=== PATIENT | female | born 1990 | race Caucasian/White ===

== ENCOUNTER → 2018-11-08 17:12 | Outpatient (CLI) | payer OTHER, SELFPAY ==
[2018-11-08 16:58] VITALS: BMI 35.2
[2018-11-08 17:38] LABS: Basophil# 0.02 X10^3/uL; Basophil% 0.2 % (0-1); Eosinophil# 0.25 X10^3/uL; Eosinophils% 2.2 % (0-5); Hematocrit 36.5 % (37-47); Hemoglobin 12.4 g/dL (12.0-15.0); Lymphocyte % 16.1 % (19-41); Mean Corpuscular Hgb 31.4 pg (27.0-32.0); Mean Corpuscular Volume 92.4 fL (81-99); Mean Platelet Vol. 10.4 fl (6.2-12.0); Monocyte# 1.09 X10^3/uL; Monocyte% 9.7 % (0-10); NRBC Flagged by Analyzer 0 % (0-5); Neutrophil # 7.99 X10^3/uL (2.7-7.7); Neutrophil % 71.4 % (47-70); Platelet Count 222 K/mm3 (150-450); RBC Distribution Width CV 13.7 % (11.6-14.6); RBC Distribution Width SD 46.2 fl (35.1-43.9); Red Blood Count 3.95 M/mm3 (4.2-5.4); White Blood Count 11.2 K/mm3 (4.4-11.0)
[2018-11-08 18:11] LABS: ALB/GLOB Ratio 0.8 RATIO (0.9-2.4); AST(SGOT) 16 U/L (15-37); Alanine Aminotransfer ALT/SGPT 19 U/L (13-56); Albumin, Serum 2.8 g/dL (3.2-5.0); Alkaline Phosphatase 158 U/L (45-117); Anion Gap 10 (5-15); BUN 7 mg/dL (7-18); BUN/Creat Ratio 11.1 RATIO (10-20); Calcium,Total 8.2 mg/dL (8.5-10.1); Chloride 108 mmol/L (98-107); Creatinine, Serum 0.63 mg/dL (0.55-1.02); EST Glomerular Filtration Rate 118 mL/min (>60); Est Glom Filt Rate - Afr Amer 142 mL/min (>60); Globulin 3.6 g/dL (2.2-4.2); Glucose 77 mg/dL (74-106); Potassium 3.8 mmol/L (3.5-5.1); Protein, Total 6.4 g/dL (6.4-8.2); Sodium Level 140 mmol/L (136-145)
[2018-11-08 18:22] LABS: Protein, Urine (Random) 7.8 mg/dL (<11.9); Protein:Creat Ratio 341 mg/g CRE (0-200)
== END ==
PROVIDERS: Family Provider Family Medicine; PCP Family Medicine; Referring Provider Obstetrics & Gynecology; Visit Provider Obstetrics & Gynecology
DX: O16.3 Unspecified maternal hypertension, third trimester (principal); Z3A.36 36 weeks gestation of pregnancy
CPT/HCPCS: 36415; 80053; 82570; 84156; 85025; 87081

== ENCOUNTER 2018-11-09 14:53 | Inpatient (IN) | payer OTHER, SELFPAY ==
[2014-12-27 05:38] VITALS: BMI 35.2
[2018-11-08 16:58] VITALS: BMI 35.2
[2018-11-09 15:35] VITALS: BMI 33.0
[2018-11-09] MEDS: Lactated Ringers 1,000 ML 50 ML IV ×2 (15:35→17:30)
[2018-11-09 15:52] LABS: Absolute Lymphocyte Count 1.26 X10^3/uL (0.83-4.51); Absolute Neutrophil Count 8.8 X10^3/uL (2.0-7.7); Basophil# 0.01 X10^3/uL; Basophil% 0.1 % (0-1); Eosinophil# 0.13 X10^3/uL; Eosinophils% 1.2 % (0-5); Hematocrit 37.2 % (37-47); Hemoglobin 12.7 g/dL (12.0-15.0); Lymphocyte # 1.26 X10^3/ul (4.0); Lymphocyte % 11.2 % (19-41); Mean Corp Hgb Conc 34.1 g/dL (32-36); Mean Corpuscular Hgb 30.9 pg (27.0-32.0); Mean Corpuscular Volume 90.5 fL (81-99); Mean Platelet Vol. 10.2 fl (6.2-12.0); Monocyte# 0.97 X10^3/uL; Monocyte% 8.6 % (0-10); NRBC Flagged by Analyzer 0 % (0-5); Neutrophil # 8.82 X10^3/uL (2.7-7.7); Neutrophil % 78.3 % (47-70); Platelet Count 224 K/mm3 (150-450); RBC Distribution Width CV 13.6 % (11.6-14.6); Red Blood Count 4.11 M/mm3 (4.2-5.4); White Blood Count 11.3 K/mm3 (4.4-11.0)
[2018-11-09] MEDS: fentaNYL-bupivacaine (epidural) 100 ML BAG EPIDURAL (16:15)
[2018-11-09] MEDS: Betamethasone/Betamethasone 30 MG/5 ML Vial 12 MG IM (16:32)
[2018-11-09] MEDS: Oxytocin 30 units/NS 500 ml 30 UNITS/500 ML IV.SOLN 334 UNITS IV (18:07)
[2018-11-09] MEDS: Oxytocin 30 units/NS 500 ml 30 UNITS/500 ML IV.SOLN 167 UNITS IV (18:38)
--- NOTE | 2018-11-09 19:19 | HP.PCM_ITS ---
- Problem List (1) labor Status: Acute (2) (vaginal after ) Status: Acute (3) Status: Acute Qualifiers: Comment: 1 hr glucose normal (4) Rh negative status during Status: Acute Qualifiers: Comment: Gave rhogam 09/12/18 (5) History of Status: Acute Comment: Breech presentation (6) Breech presentation Status: Acute History Date of Admission: 01/03/15 Final MOMO: 12/04/18 Final MOMO Source: LMP Gestational age: 36 Weeks and 3 Days History of this : This is a 28 year-old, at 36 weeks gestational age presents in active labor 6 cm dilated. She denies any vaginal bleeding or loss of fluid admits good movement. She is had regular contractions for the last couple of hours increasing in intensity. She had elevated protein in her urine yesterday and initially high pressure but all blood pressures have been within normal limits since. Medical History: Medical History (Last Reviewed 11/08/18 @ 16:22 by Cara Mcneill) Rh negative status during (Acute) O26.899, Z67.91 Gave rhogam 09/12/18 Surgical History: Surgical History (Last Reviewed 11/08/18 @ 16:22 by Cara Mcneill) History of (Acute) Z98.891 Breech presentation Allergies No Known Allergies Allergy (Verified 11/09/18 15:34) Home Medications: Home Medications Vits [Prenatabs FA ] 1 tab PO DAILY 10/30/14 blood pressure monitor kit See Rx Instructions .ROUTE .MEDSUPPLY #1 ea 11/08/18 Smoking Status: Never smoker Alcohol: None Number of Fetus(es): 1 Heart Tracin moderate variability reactive no decelerations category I tracing [place]: regular History Past Pregnancies: Past Pregnancies Term vaginal delivery uncomplicated Term at complete dilation due to breech presentation. Emergency explo ratory laparotomy afterwards for retroperitoneal hematoma and RSO. ICU admission and blood product replacement Labs: Mom's Labs & Results 11/09/18 11/09/18 11/09/18 15:35 15:35 15:35 WBC 11.3 H RBC 4.11 L Hgb 12.7 Hct 37.2 MCV 90.5 MCH 30.9 MCHC 34.1 RDW Std Deviation 45.0 H RDW Coeff of Stew 13.6 Plt Count 224 MPV 10.2 Immature Gran % (Auto) 0.600 Neut % (Auto) 78.3 H Lymph % (Auto) 11.2 L [place] % (Auto) 8.6 Eos % (Auto) 1.2 Baso % (Auto) 0.1 Absolute Neuts (auto) 8.8 H Absolute Lymphs (auto) 1.26 Nucleated RBC % 0 Blood Type A NEGATIVE Antibody Screen TNP NEGATIVE Course Did the patient receive Yes care? Labs Blood Type: A RH: NEGATIVE RPR/VDRL/Syphilis Nonreactive Rubella status Immune HbSAg Negative Date Done: 05/09/18 Chlamydia Negative Gonorrhea Negative HIV/AIDS Non-Reactive Group B Strep: Collected on Admission Other Lab Procedures/Results/ GBS pending; pt to be treated with ampicillin for Comments: premat Current Obstetrical History Gestational Diabetes No Incompetent Cervix No Infertility No IUGR No Macrosomia No Hypertension/Pre-eclampsia No Placenta Previa/Abruption No PTL/PROM No Uterine anomaly No Oligohydramnios No Polyhydramnios No Multiple gestation No Past Medical History Asthma No Diabetes No Hypertension No Heart disease No Mitral valve prolapse No Neurologic/Seizure disorder/ No Migraines Kidney disease No Liver disease No Varicosities No Clotting disorders/Hx of DVT No Thyroid Dysfunction No Other medical diseases No Psychiatric disorders No Major trauma No Abnormal PAP smear No Sleep apnea No Mammogram in the last 2 years No Social History Marital Status: Alleged father Henrry Hx Smoking No Smoking Status Never smoker Expected Infant Delivery Method: Review of Systems Constitutional: Denies: Fever, Malaise Eyes: Denies: Blurred vision, Vision Change HEENT: Denies: Head Aches, Visual Changes Cardiovascular: Denies: Chest Pain, Palpitations Respiratory: Denies: Cough, Shortness of Breath, Wheezing Gastrointestinal: Denies: Abdominal Pain, Diarrhea, Nausea, Vomiting Genitourinary: Denies: Dysuria, Hematuria Musculoskeletal: Denies: Joint Pain, Muscle pain Skin: Denies: Lesions, Rash Neurological: Denies: Blurred vision, Focal weakness, Headaches Psychiatric: Denies: Anxiety, Depression Endocrine: Denies: Heat/ Cold Intolerance Hematologic/ Lymphatic: Denies: Easy Bruising, Easy Bleeding Physical Exam General: Alert, Cooperative, No apparent distress HEENT: Atraumatic, Normocephalic. Negative for: Thyromegaly, Lymphadenopathy Cardiovascular: Regular rate Lungs: Normal air movement Abdomen: Soft, Non Tender, Gravid Neurological: Deep Tendon Reflexes 2+/4 and Symmetrical, Neuro grossly intact. Negative for: Clonus ACCOUNTANT SUPERVISOR: Normal external genitalia. Negative for: Vulvar lesions Estimated gestational size: Appropriate for gestational size Presentation: Cephalic Cervix Dilation (cm): 6 Assessment/Plan All Active Problems (Last Reviewed 11/08/18 @ 16:22 by Cara Mcneill) labor (Acute) (vaginal after ) (Acute) (Acute) Rh negative status during (Acute) History of (Acute) Breech presentation (Acute) This is a 28 year-old, , at 36 weeks gestational age presents in labor 1. labor?may change from 6 to 8 cm, epidural placed and clear rupture of membranes. Ampicillin given for GBS unknown status. 2. Prematurity Celestone dose given 3. Monitor blood pressures due to proteinuria diagnosed yesterday 4. patient counseled regarding risk benefits and alternatives and patient wishes to proceed with trial of labor Multi Select Codes - Urinary/Genital Urinary/Genital CPT Codes: 87021 delivery [facility]
--- NOTE | 2018-11-09 19:22 | OP.PCM_ITS ---
Problem List (1) labor Status: Acute (2) (vaginal after ) Status: Acute (3) Status: Acute Qualifiers: Comment: 1 hr glucose normal (4) Rh negative status during Status: Acute Qualifiers: Comment: Gave rhogam 09/12/18 (5) History of Status: Acute Comment: Breech presentation (6) Breech presentation Status: Acute Vaginal Delivery Maternal Presentation: Active Labor ptl 36 weeks Amniotic Membrane Rupture Type: Artificial Amniotic Fluid Description: Clear Final MOMO: 12/04/18 Gestational age: 36 Weeks and 3 Days Date of Procedure: 11/09/18 Pre-Operative Diagnosis: ptl Post-Operative Diagnosis: same Surgery/ Procedure Performed: - - Type of Anesthesia: Epidural, Local with 1% lidocaine Description of Procedure: Patient began pushing and delivered the head in the DEANGELO presentation. The head was delivered atraumatically . The anterior and posterior shoulders delivered without complication followed by the rest of the infant and the was placed on the maternal abdomen. Delayed cord clamping was employed for approximately 60 seconds. Cord was clamped and cut and gentle traction was applied to the cord and the placenta delivered spontaneously immediately following it was noted to be intact with three-vessel cord. The perineum and vagina were inspected and noted to have a second-degree perineal laceration that was injected with 1% lidocaine due to an adequate epidural and was reapproximated with 3-0 Vicryl repeat. EBL was 200 cc. Patient and infant tolerated delivery well. Presentation: DEANGELO Placental Delivery Description: Spontaneous Placenta Disposition: [facility] Cord Vessel Description: 3 Vessels Cord Entanglement: None Estimated Blood Loss: 200 A gender: Male Episiotomy Description: None Laceration: Perineal Extension/lac, 2nd degree Medications given after delivery: IV Pitocin Complications: None Multi Select Codes - Urinary/Genital Urinary/Genital CPT Codes: 11160 delivery [facility]
[2018-11-09] MEDS: 0.9% Saline Lock 10 ML Syringe IV (19:38)
[2018-11-10 00:15] VITALS: BP 117/76; PULSE 80; RESP 18; TEMP 36.5
[2018-11-10 03:20] VITALS: BP 126/70; PULSE 75; RESP 18; TEMP 36
[2018-11-10 07:30] VITALS: BP 130/72; PULSE 82; RESP 16; TEMP 36.5; O2SAT 97
--- NOTE | 2018-11-10 08:06 | PN.OBGYN_ITS ---
Patient Problems: Active and Suspected Problems (Last Reviewed 11/08/18 @ 16:22 by Cara Mcneill) labor (Acute) (vaginal after ) (Acute) Subjective: doing well no complaints pain controlled no CP SOB N V ambulating well tolerating po lochia moderate, going well - Physical Exam General: Alert, Oriented x3 Abdomen: Soft, Non Tender, - - FF below U Vital Signs Temp Pulse Resp BP Pulse Ox 97.7 F L 82 16 130/72 H 97 11/10/18 07:30 11/10/18 07:30 11/10/18 07:30 11/10/18 07:30 11/10/18 07:30 Oxygen Delivery Method Room Air Weight: 205 lb 0.478 oz Body Mass Index (BMI) 33.0 Intake and Output for Last 24 Hours 11/08/18 11/09/18 11/10/18 23:59 23:59 23:59 Output Total 600 / 600 400 / 400 Balance -600 / -600 -400 / -400 Laboratory Tests Past 24 Hrs 11/09/18 11/09/18 11/09/18 15:35 15:35 15:35 WBC 11.3 H RBC 4.11 L Hgb 12.7 Hct 37.2 MCV 90.5 MCH 30.9 MCHC 34.1 RDW Std Deviation 45.0 H RDW Coeff of Stew 13.6 Plt Count 224 MPV 10.2 Immature Gran % (Auto) 0.600 Neut % (Auto) 78.3 H Lymph % (Auto) 11.2 L [place] % (Auto) 8.6 Eos % (Auto) 1.2 Baso % (Auto) 0.1 Absolute Neuts (auto) 8.8 H Absolute Lymphs (auto) 1.26 Nucleated RBC % 0 Blood Type A NEGATIVE Antibody Screen TNP NEGATIVE Screen Baby's Blood Type Baby's BRIAN 11/09/18 20:30 WBC RBC Hgb Hct MCV MCH MCHC RDW Std Deviation RDW Coeff of Stew Plt Count MPV Immature Gran % (Auto) Neut % (Auto) Lymph % (Auto) [place] % (Auto) Eos % (Auto) Baso % (Auto) Absolute Neuts (auto) Absolute Lymphs (auto) Nucleated RBC % Blood Type Antibody Screen Screen NEGATIVE Baby's Blood Type O POSITIVE Baby's BRIAN NEGATIVE Medical Necessity - Tobacco Use Smoking Status: Never smoker Assessment/Plan All Active Problems (Last Reviewed 11/08/18 @ 16:22 by Cara Mcneill) labor (Acute) (vaginal after ) (Acute) (Acute) Rh negative status during (Acute) History of (Acute) Breech presentation (Acute) s/p PPD # 1 1. routine post delivery care 2. breast feeding- support given 3. rh negative 4. rubella immune
--- NOTE | 2018-11-10 08:08 | DCINST_ITS ---
Additional Instructions: If you experience any of the following, contact your healthcare provider. * Bleeding that soaks a pad every hour for 2 hours * Fever 100.4 or higher * Unrelieved incision or abdominal pain * Swelling, redness, discharge or bleeding from your incision or episiotomy site * Your incision begins to separate * Problems urinating (including inability to urinate or burning while urinating). * Visual changes * Severe headache * Flu-like symptoms * Pain or redness in one of both of your breasts * Pain, warmth, tenderness or swelling in your legs, especially the calf area * Frequent nausea and vomiting * Symptoms of depression or anxiety If you experience any of the following, call 911 or go to the nearest Emergency Room. * Chest pain * Problems breathing * Seizure activity * Partial or complete paralysis of a body part, slurred speech, weakness or drooping of the face, or a sudden inability to walk or hold your balance Allergies/Adverse Reactions: Allergies No Known Allergies Allergy (Verified 11/09/18 15:34) Medications to take at Discharge Vits [Prenatabs FA ] 1 tab PO DAILY 10/30/14 blood pressure monitor kit See Rx Instructions .ROUTE .MEDSUPPLY #1 ea 11/08/18 Primary Care Physician: Mitchel Bustamante MD [Primary Care Provider] - Test Results: Test results from this visit will be discussed in further detail at your follow- up appointment, if applicable.
--- NOTE | 2018-11-10 08:08 | PCM.DCVAG ---
Additional Instructions: If you experience any of the following, contact your healthcare provider. Bleeding that soaks a pad every hour for 2 hours Fever 100.4 or higher Unrelieved incision or abdominal pain Swelling, redness, discharge or bleeding from your incision or episiotomy site Your incision begins to separate Problems urinating (including inability to urinate or burning while urinating). Visual changes Severe headache Flu-like symptoms Pain or redness in one of both of your breasts Pain, warmth, tenderness or swelling in your legs, especially the calf area Frequent nausea and vomiting Symptoms of depression or anxiety If you experience any of the following, call 911 or go to the nearest Emergency Room. Chest pain Problems breathing Seizure activity Partial or complete paralysis of a body part, slurred speech, weakness or drooping of the face, or a sudden inability to walk or hold your balance Allergies/Adverse Reactions: Allergies No Known Allergies Allergy (Verified 11/09/18 15:34) Medications to take at Discharge Vits [Prenatabs FA ] 1 tab PO DAILY 10/30/14 blood pressure monitor kit See Rx Instructions .ROUTE .MEDSUPPLY #1 ea 11/08/18 Primary Care Physician: Mitchel Bustamante MD [Primary Care Provider] - Test Results: Test results from this visit will be discussed in further detail at your follow-up appointment, if applicable.
[2018-11-10 13:00] VITALS: BP 131/83; PULSE 82; RESP 16; TEMP 36.6
[2018-11-10 17:24] VITALS: BP 121/89; PULSE 84; RESP 16; TEMP 36.2; O2SAT 97
[2018-11-10 19:31] VITALS: BP 115/63; PULSE 85; RESP 18; TEMP 36.9
[2018-11-11 02:35] VITALS: BP 107/62; PULSE 60; RESP 16; TEMP 36.8
[2018-11-11 08:00] VITALS: BP 114/72; PULSE 71; RESP 16; TEMP 36.3; O2SAT 99
--- NOTE | 2018-11-11 10:32 | NURSING ---
discharge instr reviewed with the pt for herself and for baby. pt dc to home
[2018-11-11] MEDS: Naproxen 250 MG Tablet 500 MG PO (10:33)
--- NOTE | 2018-11-11 12:53 | PCM.PN.OB ---
Patient Problems: Active and Suspected Problems (Last Reviewed 11/08/18 @ 16:22 by Cara Mcneill) labor (Acute) (vaginal after ) (Acute) Subjective: doing well no complaints pain controlled no CP SOB N V ambulating well tolerating po lochia moderate, going well - Physical Exam General: Alert, Oriented x3 Vital Signs Temp Pulse Resp BP Pulse Ox 97.3 F L 71 16 114/72 99 11/11/18 08:00 11/11/18 08:00 11/11/18 08:00 11/11/18 08:00 11/11/18 08:00 Oxygen Delivery Method Room Air Weight: 205 lb 0.478 oz Body Mass Index (BMI) 33.0 Intake and Output for Last 24 Hours 11/09/18 11/10/18 11/11/18 23:59 23:59 23:59 Output Total 600 / 600 400 / 400 Balance -600 / -600 -400 / -400 Medical Necessity - Tobacco Use Smoking Status: Never smoker Assessment/Plan All Active Problems (Last Reviewed 11/08/18 @ 16:22 by Cara Mcneill) labor (Acute) (vaginal after ) (Acute) (Acute) Rh negative status during (Acute) History of (Acute) Breech presentation (Acute) s/p PPD # 2 1. routine post delivery care 2. breast feeding- support given 3. rh negative 4. rubella immune
== END 2018-11-11 12:00 | disposition home or self-care (01) | DRG 807 ==
PROVIDERS: Admitting Provider Obstetrics & Gynecology; Family Provider Family Medicine; PCP Family Medicine; Referring Provider Obstetrics & Gynecology; Visit Provider Obstetrics & Gynecology
DX: O60.14X0 Preterm labor third trimester with preterm delivery third trimester, not applicable or unspecified (principal); Z37.0 Single live birth; O34.219 Maternal care for unspecified type scar from previous cesarean delivery; O32.1XX0 Maternal care for breech presentation, not applicable or unspecified; O12.14 Gestational proteinuria, complicating childbirth; O70.1 Second degree perineal laceration during delivery; Z3A.36 36 weeks gestation of pregnancy
CPT/HCPCS: 59050; 85025; 85461; 86850; 86900; 90384; 99218; J7120; A4216; G0378; J0702; J2790

== ENCOUNTER 2018-11-23 13:10 | Outpatient (CLI) | payer OTHER, SELFPAY | END 2018-11-23 14:10 | disposition home or self-care (01) | LOC: WPOUT 13:11 → WP 13:11 | PROVIDERS: Family Provider Family Medicine; PCP Family Medicine; Referring Provider Obstetrics & Gynecology; Visit Provider Obstetrics & Gynecology | DX: Z39.1 Encounter for care and examination of lactating mother (principal) | CPT/HCPCS: 96152 ==

== ENCOUNTER → 2020-04-01 11:50 | Outpatient (CLI) | payer SELFPAY ==
[2020-04-01 11:32] VITALS: BMI 26.2
== END ==
PROVIDERS: PCP Family Medicine; Visit Provider Obstetrics & Gynecology
DX: O02.1 Missed abortion (principal)
CPT/HCPCS: 36415; 84702; 86850; 86900; 86901

== ENCOUNTER → 2020-04-03 13:25 | Outpatient (CLI) | payer SELFPAY ==
[2020-04-01 11:32] VITALS: BMI 26.2
== END ==
PROVIDERS: PCP Family Medicine; Referring Provider Obstetrics & Gynecology; Visit Provider Obstetrics & Gynecology
DX: O02.1 Missed abortion (principal)
CPT/HCPCS: 36415; 84702

== ENCOUNTER → 2020-04-16 09:31 | Outpatient (CLI) | payer SELFPAY ==
[2020-04-01 11:32] VITALS: BMI 26.2
--- NOTE | 2020-04-16 09:32 | US_ITS ---
STUDY: FIRST TRIMESTER OBSTETRICAL ULTRASOUND REASON FOR EXAM: Female, 30 years old dating, viability LMP: 03/04/2020. TECHNIQUE: Transvaginal TECHNICAL QUALITY: Adequate. PRIOR ULTRASOUND: None. FINDINGS: There is visualization of a single gestational sac in a normal intrauterine position. The mean sac diameter (MSD) measures 4.1 cm, indicating an estimated gestational age (EGA) of 9 weeks, 4 days. The gestational sac shape is within normal limits. There is a visualized yolk sac. The yolk sac measures 5 mm. The placenta is non-visualized. There is visualization of a live embryo. The crown-rump length (CRL) measures 2.8 cm, indicating an estimated gestational age (EGA) of 9 weeks, 2 days. There is demonstrated cardiac activity with a heart rate of 176 bpm. The estimated gestation age (EGA) by LMP is 8 weeks, 1 days. The estimated date of delivery (MOMO) by LMP is 11/25/2020. The estimated gestation age (EGA) by US is 9 weeks, 3 days. The estimated date of delivery (MOMO) by US is 11/16/2020. The uterus measures 12.2 cm x 6.1 cm x 8 cm. There is no demonstrated uterine fibroid. The cervix is closed. The patient is status post right nephrectomy. The left ovary measures 4.6 cm x 3.7 cm x 3.3 cm. There is a 3.2 cm x 3.1 cm x 3 cm cyst in the left ovary. There is no visualized left adnexal mass or complex lesion. There is no fluid in the cul de sac. US/Init OB < 14Wks US IMPRESSION: Single live intrauterine gestation with a mean gestational age of 9 weeks and 3 days. 3.2 cm x 3.1 cm x 3 cm cyst in the left ovary. Electronically Signed: Panfilo Ruvalcaba, at 11:25 EST , Service support ,
== END ==
PROVIDERS: PCP Family Medicine; Referring Provider Obstetrics & Gynecology; Visit Provider Obstetrics & Gynecology
DX: O20.0 Threatened abortion (principal); Z3A.09 9 weeks gestation of pregnancy
CPT/HCPCS: 76801

== ENCOUNTER → 2020-05-13 10:21 | Outpatient (CLI) | payer SELFPAY ==
[2020-05-13 09:42] VITALS: BMI 27.2
[2020-05-13 10:38] LABS: Absolute Lymphocyte Count 1.59 X10^3/uL (0.83-4.51); Absolute Neutrophil Count 5.5 X10^3/uL (2.0-7.7); Basophil# 0.04 X10^3/uL; Basophil% 0.5 % (0-1); Eosinophil# 0.16 X10^3/uL; Lymphocyte # 1.59 X10^3/ul (4.0); Lymphocyte % 20.3 % (19-41); Mean Corp Hgb Conc 34.2 g/dL (32-36); Mean Corpuscular Hgb 31.2 pg (27.0-32.0); Mean Corpuscular Volume 91.1 fL (81-99); Mean Platelet Vol. 9.5 fl (6.2-12.0); Monocyte# 0.51 X10^3/uL; Monocyte% 6.5 % (0-10); NRBC Flagged by Analyzer 0 % (0-5); Neutrophil # 5.53 X10^3/uL (2.7-7.7); Neutrophil % 70.4 % (47-70); Platelet Count 247 K/mm3 (150-450); RBC Distribution Width CV 13.3 % (11.6-14.6); RBC Distribution Width SD 44.3 fl (35.1-43.9); Red Blood Count 4.17 M/mm3 (4.2-5.4); White Blood Count 7.9 K/mm3 (4.4-11.0)
[2020-05-13 11:14] LABS: ALB/GLOB Ratio 1.1 RATIO (0.9-2.4); AST(SGOT) 14 U/L (15-37); Alanine Aminotransfer ALT/SGPT 20 U/L (13-56); Albumin, Serum 3.7 g/dL (3.2-5.0); Alkaline Phosphatase 54 U/L (45-117); Anion Gap 7 (5-15); BUN 9 mg/dL (7-18); BUN/Creat Ratio 13.7 RATIO (10-20); Calcium,Total 9.4 mg/dL (8.5-10.1); Chloride 104 mmol/L (98-107); Creatinine, Serum 0.66 mg/dL (0.55-1.02); EST Glomerular Filtration Rate 112 mL/min (>60); Est Glom Filt Rate - Afr Amer 135 mL/min (>60); Globulin 3.5 g/dL (2.2-4.2); Glucose 79 mg/dL (74-106); Protein, Total 7.2 g/dL (6.4-8.2); Sodium Level 137 mmol/L (136-145)
[2020-05-13 14:04] LABS: Amphetamine Urine VISTA NEGATIVE (<1000 ng/mL); Barbiturate Urine VISTA NEGATIVE (< 200 ng/mL); Benzodiazepine Urine VISTA NEGATIVE (< 200 ng/mL); Cocaine Urine VISTA NEGATIVE (< 300 ng/mL); Ecstacy Urine VISTA NEGATIVE (< 500 ng/mL); Methadone Urine VISTA NEGATIVE (< 300 ng/mL); PCP Urine VISTA NEGATIVE (< 25 ng/mL); THC Urine VISTA NEGATIVE (< 50 ng/mL); Vista UDS pH Range 6
[2020-05-15 15:01] LABS: HIV - WCH Non-Reactive (Nonreactive); Hepatitis B Surface Antigen Non-Reactive (Nonreactive); Hepatitis C Antibody Non-Reactive (Nonreactive); Rubella IgG Reactive (Nonreactive)
[2020-05-16 03:03] LABS: Rapid Plasmin Reagin (RPR) NONREACTIVE (NONREACTIVE)
== END ==
PROVIDERS: PCP Family Medicine; Referring Provider Obstetrics & Gynecology; Visit Provider Obstetrics & Gynecology
DX: O09.90 Supervision of high risk pregnancy, unspecified, unspecified trimester (principal); O09.299 Supervision of pregnancy with other poor reproductive or obstetric history, unspecified trimester; O26.899 Other specified pregnancy related conditions, unspecified trimester; Z67.91 Unspecified blood type, Rh negative; Z3A.00 Weeks of gestation of pregnancy not specified
CPT/HCPCS: 36415; 80053; 80307; 85025; 86592; 86703; 86762; 86803; 86850; 86870; 87086; 87340

== ENCOUNTER → 2020-06-10 | Outpatient (CLI) | payer SELFPAY ==
[2020-06-10 10:42] VITALS: BMI 28.4
[2020-06-13 07:07] LABS: Chlamydia By Nucleic Acid AMP Negative (Negative)
[2020-06-13 08:28] LABS: Gonococcus By Nucleic Acid AMP Negative (Negative)
== END | disposition home or self-care (01) ==
LOC: LABSPEC 12:38
PROVIDERS: PCP Family Medicine; Referring Provider Nurse Practitioner Women's Health; Visit Provider Nurse Practitioner Women's Health
DX: O09.90 Supervision of high risk pregnancy, unspecified, unspecified trimester (principal); Z3A.00 Weeks of gestation of pregnancy not specified
CPT/HCPCS: 87491; 87591

== ENCOUNTER → 2020-07-08 07:53 | Outpatient (CLI) | payer SELFPAY ==
[2020-06-10 10:42] VITALS: BMI 28.4
--- NOTE | 2020-07-08 07:56 | US_ITS ---
STUDY: SECOND AND THIRD TRIMESTER OBSTETRICAL ULTRASOUND REASON FOR EXAM: Female, 30 years old anatomy LMP: 02/19/2020. TECHNIQUE: Transabdominal and Transvaginal TECHNICAL QUALITY: Adequate. PRIOR ULTRASOUND: Comparison is made with prior study dated 04/16/2020. FINDINGS: There is a single intrauterine fetus. The fetus is in a transverse lie with the head on the maternal right side. There is demonstrated cardiac activity with a heart rate of 144 bpm. There is a normal amniotic fluid volume. The largest amniotic fluid pocket measures 4 cm. The amniotic fluid index (TYRA) is within normal limits. The placenta is fundal in location. There are Grade 0 placental changes. The cervix measures 2.5 cm in length. The bilateral adnexal regions are normal. BIOMETRY: BPD: 4.74 cm: 20 weeks, 2 days HC: 18.36 cm: 20 weeks, 5 days AC: 17.24 cm: 22 weeks, 1 days FL: 3.57 cm: 21 weeks, 2 days CI: 75% FL/BPD: 75% FL/HC: FL/AC: 21% HC/AC: 1.06 age by current US: 20 weeks, 4 days. MOMO by current US: 11/21/2020. Estimated weight: 440 grams, +/- 66 grams, 99 %. age by prior US: 21 weeks, 2 days. MOMO by prior US: 11/16/2020. Age by LMP: 20 weeks, 0 days. MOMO by LMP: 11/25/2020. ANATOMY: Gender: Male Cranium: Normal lateral ventricles. Normal choroid plexus. Normal cerebellum. Normal cisterna magna. Normal face, nose and lips. Chest: Normal 4-chamber heart. Abdomen/Pelvis: Normal diaphragm. Normal stomach. Normal abdominal wall. Normal cord insertion. Normal 3 vessel cord. Normal kidneys. Normal bladder. Spine: Normal cervical spine. Normal thoracic spine. Normal lumbar spine. Normal sacrum. Extremities: Normal bilateral upper extremities. Normal bilateral lower extremities. US/OB Anatomy Scan IMPRESSION: Single live uterine gestation with a mean gestational age of 21 weeks and 2 days. The measurements obtained today fall within the normal expected range. Electronically Signed: Panfilo Ruvalcaba MD at 9:49 EDT , Service support ,
--- NOTE | 2020-07-08 09:26 | US_ITS ---
STUDY: ULTRASOUND OF THE FEMALE PELVIS - COMPLETE REASON FOR EXAM: Female, 31 years old. Pain -- LEFT PELVIC PAIN -- HEAVY PERIODS LMP: 09/05/2021. TECHNIQUE: Transabdominal and Transvaginal TECHNICAL QUALITY: Adequate. COMPARISON: None. FINDINGS: The uterus is anteverted and is in a midline position. The uterus measures 8.9 cm x 6.3 cm x 5.1 cm. Normal uterine cervix. The endometrium is thickened and measures 12 mm in thickness, and is hyperechoic. There is no demonstrated endometrial mass. There is no demonstrated myometrial mass. I.U.D. - The patient does not have an I.U.D. The patient is status post right oophorectomy. The left ovary is visualized. The left ovary measures 4 cm x 4.6 cm x 3.1 cm. There is a 3 cm x 3.1 cm x 2.4 cm left ovarian cyst. There is no visualized left adnexal mass or complex lesion. There is normal arterial and normal venous vascularity. There is no fluid in the cul-de-sac. The pre void volume of the bladder was 572 ml. US/Transvaginal w/Preg US IMPRESSION: Status post right oophorectomy. 3 cm x 3.1 cm x 2.4 cm left ovarian cyst. The endometrium measures 12 mm in thickness. Electronically Signed: Panfilo Ruvalcaba MD at 13:13 EDT ,
== END ==
PROVIDERS: PCP Family Medicine; Referring Provider Obstetrics & Gynecology; Visit Provider Obstetrics & Gynecology
DX: O09.90 Supervision of high risk pregnancy, unspecified, unspecified trimester (principal); Z3A.21 21 weeks gestation of pregnancy
CPT/HCPCS: 76805; 76817

== ENCOUNTER → 2020-07-11 10:35 | Outpatient (CLI) | payer SELFPAY ==
[2020-07-08 09:57] VITALS: BMI 29.5
== END ==
PROVIDERS: PCP Family Medicine; Referring Provider Obstetrics & Gynecology; Visit Provider Obstetrics & Gynecology
DX: R69 Illness, unspecified (principal)
CPT/HCPCS: 36415; 86850; 86900; 86901

== ENCOUNTER → 2020-08-05 | Outpatient (CLI) | payer SELFPAY ==
[2020-08-05 09:43] VITALS: BMI 30.8
[2020-08-05 16:13] LABS: Chlamydia Trachomatis by PCR Negative (Negative); Neisserai gonorrhoeae by PCR Negative (Negative); Probe Check PASS; Sample Adequacy Control PASS; Specimen Processing Control PASS
== END | disposition home or self-care (01) ==
LOC: LABSPEC 13:28
PROVIDERS: PCP Family Medicine; Visit Provider Obstetrics & Gynecology
DX: Z11.3 Encounter for screening for infections with a predominantly sexual mode of transmission (principal)
CPT/HCPCS: 87491; 87591

== ENCOUNTER → 2020-09-02 09:13 | Outpatient (CLI) | payer SELFPAY ==
[2020-08-05 09:43] VITALS: BMI 30.8
[2020-09-02 09:38] LABS: Absolute Lymphocyte Count 1.58 X10^3/uL (0.83-4.51); Basophil# 0.05 X10^3/uL; Basophil% 0.5 % (0-1); Eosinophil# 0.33 X10^3/uL; Eosinophils% 3.4 % (0-5); Hematocrit 35.9 % (37-47); Lymphocyte # 1.58 X10^3/ul (0.83-4.51); Lymphocyte % 16.3 % (19-41); Mean Corp Hgb Conc 33.4 g/dL (32-36); Mean Corpuscular Hgb 30.8 pg (27.0-32.0); Mean Corpuscular Volume 92.3 fL (81-99); Mean Platelet Vol. 9.9 fl (6.2-12.0); Monocyte# 0.67 X10^3/uL; Monocyte% 6.9 % (0-10); NRBC Flagged by Analyzer 0 % (0-5); Neutrophil # 6.98 X10^3/uL (2.7-7.7); Neutrophil % 72.3 % (47-70); Platelet Count 247 K/mm3 (150-450); RBC Distribution Width CV 13.2 % (11.6-14.6); RBC Distribution Width SD 44.4 fl (35.1-43.9); Red Blood Count 3.89 M/mm3 (4.2-5.4); White Blood Count 9.7 K/mm3 (4.4-11.0)
[2020-09-02 09:45] LABS: Glucose Challenge Gest 1H 50g 116 mg/dL (70-140)
== END ==
PROVIDERS: PCP Family Medicine; Referring Provider Obstetrics & Gynecology; Visit Provider Obstetrics & Gynecology
DX: Z13.1 Encounter for screening for diabetes mellitus (principal); Z34.90 Encounter for supervision of normal pregnancy, unspecified, unspecified trimester
CPT/HCPCS: 36415; 82950; 85025; 86850; 86870; 86900; 86901

== ENCOUNTER 2020-09-18 01:35 | Inpatient (IN) | payer SELFPAY ==
[2020-09-16 09:20] VITALS: BMI 30.8
[2020-09-18] VITALS (26 sets, daily range): BP systolic 112–132; BP diastolic 59–84; PULSE 69–101; RESP 18; TEMP 36.2–37.2; O2SAT 98–99; BMI 32.6
[2020-09-18] MEDS: 0.9% Saline Lock 10 ML Syringe IV ×2 (01:25)
[2020-09-18] MEDS: Lactated Ringers 500 ML 999 ML IV (01:45)
--- NOTE | 2020-09-18 01:51 | HP.PCM.OB_ITS ---
HPI - General General Date of Admission: 09/18/20 HPI Narrative PRESTON ESCOBAR, is a 30 F who presents in labor 6 cm dilated with a bulging bag, denies any vb admits good fm no lof. Maternal Data Information MOMO Calculator Estimated Delivery Date Method Current WG Current Estimate 11/25/20 LMP (Certain) 30w 2d PFSH PFSH Medical History H/O pelvic hematoma (~12/2014) H/O pre-eclampsia in prior , currently (~10/2018) H/O delivery, currently (~10/2018) Home Medications multivitamin 1 tab PO DAILY 04/01/20 [History Last Taken 09/17/20 07:30] RhoGAM Ultra-Filtered PLUS 1,500 unit (300 mcg) intramuscular syringe 1,500 unit IM ONCE #1 each NS 07/11/20 [Clinic Last Taken Unknown] progesterone micronized 100 mg vaginal insert 1 insert VAGINAL BID 08/05/20 [History Last Taken 09/17/20 21:00] LXC-nzilfkxtqhjub-marlhbl-caff 1 tab PO DAILY 09/18/20 [History Last Taken 09/17/20 07:30] Allergy/AdvReac Type Severity Reaction Status Date / Time No Known Allergies Allergy Verified 09/18/20 01:26 Family History Brother Diabetes Surgical History History of (~12/2014) History of right salpingo-oophorectomy (~12/2014) Social History adopted: No household members: family housing: house number of children: 3 current occupation: homemaker Smoking Status: Never smoker second hand exposure: No alcohol intake: never substance use type: does not use caffeine: No what type of physical activity do you participate in: walking seatbelt use: always do you feel safe at home: Yes additional social history: Henrry- self employed History 6 Elective abortions Hx Para 3 Spontaneous abortions 3 Hx # Term Pregnancies Ectopic pregnancies Hx # Pregnancies Multiple births # of living children 3 Past Pregnancies Del. Date Name GA/Weeks Outcome Route Bth Weight Infant Gen Labor Lgth Anesthesia Del Locatn Provider FOB Unknown 2011 Tereso 37 live - full term 7lbs 4oz Male 9 hours none Jesús Unknown 2014 Grace 39 live - full term 6lbs 15oz F emale spinal [facility] Dr. Esparza 10/28/18 Demarco 36 live - 7lbs 2oz Male 6 hours epi dural [facility] Marcanthony Delivery Date: No notes to display Delivery Date: Breech- had a hematoma and had to have a blood transfusion; zita drain placed- right ovary and fallopian tube removed Paola Cantu Delivery Date: 10/28/18 pre-e Paola Cantu Visit Details Expected Delivery Route/Plan patient counseled regarding risks/benefits of trial of labor versus repeat . ACOG/uptodate education given to patient. [] % likelihood of success per calculator TOLAC consent form signed: [] Labor Preferences- labor support person: [] labor intervention preferences: [] pain management options preferred: [] cut cord/dad catch: [] : [] PP control planned: [] discussed possible routes of delivery and associated risks: [] special requests: [] Plans covid status: raina. flu vaccine: [] tdap vaccine: declined rhogam: 07/11- will give again after 10/10 LARC form signed: [] movement and labor precautions reviewed. Problem list reviewed and updated with the most current plan of care details and appropriate orders placed. Relevant counseling for the gestational age provided. Continue routine care and follow up unless otherwise noted in visit notes/problem list details OB Flowsheet Initial Weight: 165 lb Date -?-?-?-?-?-?-?-?-?-?-?-?- EGA Weight BP Urine Prot -?-?-?-?-?-?-?-?-?-?-?-?- Glucose FHR FuHt Pres Dilation -?-?-?-?-?-?-?-?-?-?-?-?- Effaced St Visit Note 05/13/20 -?-?-?-?-?-?-?-?-?-?-?-?- 12w 0d 169 lb (+4 lb) 136/80 -?-?-?-?-?-?-?-?-?-?-?-?- 145 -?-?-?-?-?-?-?-?-?-?-?-?- GP - CRL consist ent with prior US. 06/10/20 -?-?-?-?-?-?-?-?-?-?-?-?- 16w 0d 176 lb 4 oz (+11 lb 4 oz) 132/86 Negative -?-?-?-?-?-?-?-?-?-?-?-?- Negative 159 -?-?-?-?-?-?-?-?-?-?-?-?- MH-No Vb, LOF. A natomy Us scheduled. Urine GCC collected. 07/08/20 -?-?-?-?-?-?-?-?-?-?-?-?- 20w 0d 183 lb (+18 lb) 130/88 Negative -?-?-?-?-?-?-?-?-?-?--?-?- Negative 150 -?-?-?-?-?-?-?-?-?-?-?-?- GP - no SANJEEV, VB, DFM, ctx. Anatomy scan shows CL of 2.5cm. Discussed that this can mean an increased risk of delivery and with a prior 36 week delivery, recommend referral to [facility]. 08/05/20 -?-?-?-?-?-?-?-?-?-?-?-?- 24w 0d 191 lb (+26 lb) 136/80 Negative -?-?-?-?-?-?-?-?-?-?-?-?- Negative 145 -?-?-?-?-?-?-?-?-?-?-?-?- SM- no vb lof SM- no vb lof good fm no reg ualr ctx reviwed PTL precautions 09/02/20 -?-?-?-?-?-?-?-?-?-?-?-?- 28w 0d 200 lb (+35 lb) 138/82 Negative -?-?-?-?-?-?-?-?-?-?-?-?- Negative 155 -?-?-?-?-?-?-?-?-?-?-?-?- SM- no vb lof go od fm no regualr ctx reviewed PLT and rhogam precautions 09/16/20 -?-?-?-?-?-?-?-?-?-?-?-?- 30w 0d 204 lb 4 oz (+39 lb 4 oz) 130/82 Negative -?-?-?-?-?-?-?-?-?-?-?-?- Negative 150 30 -?-?-?-?-?-?-?-?-?-?-?-?- GP - no LOF, VB, DFM, ctx. Rhogam next visit because received 07/1109/18/20 -?-?-?-?-?-?-?-?-?-?-?-?- 30w 2d 202 lb 2.622 oz (+37 lb 2.622 oz) 129/76 Pending -?-?-?-?-?-?-?-?-?-?-?-?- -?-?-?-?-?-?-?-?-?-?-?-?- NST FHR Rate Baby A Baseline: 140 Variability:: Moderate Accelerations:: 15 x 15 Decelerations:: None NST Reactive:: Yes FHR Category:: Category I Uterine Activity:: q3-5 ROS Constitutional Constitutional: Reports systems reviewed and no addt'l complaints, except as documented ENT HEENT: Reports systems reviewed and no addt'l complaints, except as documented Cardiovascular Cardiovascular: Reports systems reviewed and no addt'l complaints, except as documented Respiratory/Chest Respiratory/Chest: Reports systems reviewed and no addt'l complaints, except as documented Gastrointestinal Gastrointestinal: Reports systems reviewed and no addt'l complaints, except as documented and nausea; Denies abdominal pain Genitourinary Genitourinary: Reports systems reviewed and no addt'l complaints, except as documented, contractions Details: present and frequency (regular ) and movement Details: present Musculoskeletal Musculoskeletal: Reports systems reviewed and no addt'l complaints, except as documented Integumentary Integumentary: Reports as per HPI Neurologic Neurologic: Reports systems reviewed and no addt'l complaints, except as documented Endocrine Endocrinology: Reports systems reviewed and no addt'l complaints, except as documented Vital Signs Vital Signs Vital Signs: 09/18/20 01:08 09/18/20 01:09 Temperature 98.9 F Temperature Source Temporal Pulse Rate 101 H Blood Pressure 129/76 H BP Systolic 129 BP Diastolic 76 Pulse Ox 99 Weight Weight: 202 lb 2.622 oz Body Mass Index (BMI) 32.6 Physical Exam Const alert, oriented x3 and healthy appearing Constitutional Narrative: uncomfortable with contractions HEENT normocephalic and moist oral mucous membranes Head and Scalp: atraumatic Neck full ROM, no lymphadenopathy, supple and thyroid normal General: trachea midline Thyroid: thyroid normal Lymph Lymphatic: no lymphadenopathy noted Chest inspection of chest normal Resp normal respiratory effort Cardio regular rate GI normal to inspection, nondistended, normoactive bowel sounds, soft to palpation and non-tender Inspection: gravid external exam normal Bimanual Exam - Vag & Uterus: uterus non-tender Manual OB Exam: estimated gestational size appropriate, presentation cephalic, dilated, effaced and station Extremity normal to inspection General Extremity: Negative for edema Skin no rashes or lesions noted Neuro deep tendon reflexes 2+ bilaterally Motor Exam: strength 5/5 throughout and clonus absent Psych mental status grossly normal Labs Labs Labs: Blood Type A NEGATIVE Antibody Screen POSITIVE H Hct 35.9 % (37-47) L Hgb 12.0 g/dL (12.0-15.0) Pap Smear Negative Obstetrics US VZV IgG Antibody > 4000 index (Immune >165) Rubella IgG Antibody Reactive (Nonreactive) Hep Bs Antigen Non-Reactive (Nonreactive) Neisseria gonorrhoeae DNA (CHASE) Negative (Negative) HIV 1&2 Antibody Non-Reactive (Nonreactive) C.trachomatis DNA (PCR) Negative (Negative) Glucose 1 Hr 50 gm 116 mg/dL (70-140) Group B Strep DNA POSITIVE (Negative) H Rhogam given: Yes Miscellaneous Test Assessment & Plan (1) : QUALIFIERS: Weeks of gestation: 30 weeks Qualified Code(s): Z3A.30 - 30 weeks gestation of COMMENT: declines genetic and carrier, ntd screening; NL anatomy (2) H/O maternal blood transfusion, currently : COMMENT: after c/s- transferred to ICU; received 2 units of packed RBCs, 2 units of fresh frozen plasma, 1L of Hespan, 3500mL of crystalliod mostly lactated ringers (3) Rh negative state in antepartum period: COMMENT: A negative needs rhogam at 28 weeks/PRN, order titer (4) Supervision of high risk , antepartum: COMMENT: PRR MOMO 11/25/20 boy PC: Grace Rider Trent Spouse: Henrry (5) Hx successful (vaginal after ), currently : COMMENT: x 1 (6) Short cervix affecting : COMMENT: CL 2.5cm at anatomy scan. [facility] referral- patient on vaginal progesterone. Last CL 1.2cm with funneling- repeat CL in 1 week 07/29 at [place] location. 07/29/20 CL 10mm (7) H/O pre-eclampsia in prior , currently : COMMENT: baby ASA (8) H/O delivery, currently : COMMENT: delivery at 36 weeks, vaginal progesterone (9) H/O pelvic hematoma: COMMENT: developed after c/s (10) History of : COMMENT: Breech presentation- successful in 2019 PLAN: Patient presents in labor 6 cm dilated with bulging bag on stable for transport plan expectant management with delivery here and transport. Pain management: Minimal intervention. GBS unknown plan ampicillin due to prematurity and previous GBS positive status. Management of any complications: Trial of labor after , history of 1 previous successful I have reviewed the [facility] and made any clinically relevant updates.
[2020-09-18] MEDS: Betamethasone/Betamethasone 30 MG/5 ML Vial 12 MG IM (02:03)
[2020-09-18 02:04] LABS: Absolute Lymphocyte Count 2.09 X10^3/uL (0.83-4.51); Absolute Neutrophil Count 9.8 X10^3/uL (2.0-7.7); Basophil# 0.06 X10^3/uL; Basophil% 0.4 % (0-1); Eosinophil# 0.33 X10^3/uL; Eosinophils% 2.5 % (0-5); Hematocrit 36.2 % (37-47); Lymphocyte # 2.09 X10^3/ul (0.83-4.51); Lymphocyte % 15.6 % (19-41); Mean Corp Hgb Conc 33.1 g/dL (32-36); Mean Corpuscular Hgb 30.8 pg (27.0-32.0); Mean Corpuscular Volume 92.8 fL (81-99); Mean Platelet Vol. 9.9 fl (6.2-12.0); Monocyte# 1.03 X10^3/uL; Monocyte% 7.7 % (0-10); NRBC Flagged by Analyzer 0 % (0-5); Neutrophil # 9.78 X10^3/uL (2.7-7.7); Neutrophil % 73.3 % (47-70); Platelet Count 256 K/mm3 (150-450); RBC Distribution Width CV 13.2 % (11.6-14.6); RBC Distribution Width SD 44.4 fl (35.1-43.9); White Blood Count 13.4 K/mm3 (4.4-11.0)
[2020-09-18] MEDS: Lactated Ringers 1,000 ML 200 ML IV (02:15)
--- NOTE | 2020-09-18 02:45 | OP.PCM_ITS ---
Assessment & Plan (1) : QUALIFIERS: Weeks of gestation: 30 weeks Qualified Code(s): Z3A.30 - 30 weeks gestation of COMMENT: declines genetic and carrier, ntd screening; NL anatomy (2) labor: (3) Rh negative state in antepartum period: COMMENT: A negative needs rhogam at 28 weeks/PRN, order titer (4) H/O maternal blood transfusion, currently : COMMENT: after c/s- transferred to ICU; received 2 units of packed RBCs, 2 units of fresh frozen plasma, 1L of Hespan, 3500mL of crystalliod mostly lactated ringers (5) Supervision of high risk , antepartum: COMMENT: PRR MOMO 11/25/20 boy PC: Grace Rider Trent Spouse: Henrry (6) History of : COMMENT: Breech presentation- successful in 2019 (7) H/O pelvic hematoma: COMMENT: developed after c/s (8) H/O delivery, currently : COMMENT: delivery at 36 weeks, vaginal progesterone (9) H/O pre-eclampsia in prior , currently : COMMENT: baby ASA (10) Short cervix affecting : COMMENT: CL 2.5cm at anatomy scan. [facility] referral- patient on vaginal progesterone. Last CL 1.2cm with funneling- repeat CL in 1 week 07/29 at [place] location. 07/29/20 CL 10mm (11) Hx successful (vaginal after ), currently : COMMENT: x 1 (12) delivery: COMMENT: 30 SM boy Ernesto Maternal Data Information MOMO Calculator Estimated Delivery Date Method Current WG Current Estimate 11/25/20 LMP (Certain) 30w 2d Vaginal Delivery Maternal Presentation Maternal Presentation: Active Labor Maternal Presentation: PTL 30w2d previous cs x 2, x 1 Operative Information Date of Procedure: 09/18/20 Pre-Operative Diagnosis: IAL, Post-Operative Diagnosis: same Surgery / Procedure Performed: Spontaneous Vaginal Delivery Type of Anesthesia: None Special Medications: none Estimated Blood Loss: 100 Fluids Replaced: crystalloid Findings Description of Procedure: Patient began pushing and delivered the head in the DEANGELO presentation. The head was delivered atraumatically . The anterior and posterior shoulders delivered without complication followed by the rest of the and the infant was placed on the maternal abdomen. Delayed cord clamping was employed for approximately 60 seconds. Cord was clamped and cut and gentle traction was applied to the cord and the placenta delivered spontaneously immediately following it was noted to be intact with three-vessel cord. The perineum and vagina were inspected and noted to have no laceration. EBL was 100 cc. Patient and tolerated delivery well. Presentation: DEANGELO Amniotic Membrane Rupture Type: Artificial Amniotic Fluid Description: Clear Placental Delivery Description: Spontaneous Placenta Disposition: [facility] Cord Vessel Description: 3 Vessels Cord Entanglement: None Cord Gases: ABG and VBG A Gender: Male Delayed Cord Clamping: Yes Post Vaginal Delivery Medications Given After Delivery: IV Pitocin Episiotomy Description: None Laceration: None Complication Complications: None Procedures Urinary/Genital [id number]: [id number] [facility]
[2020-09-18 02:56] LABS: Fetal Fibronectin POSITIVE
[2020-09-18 03:11] LABS: Group B Strep DNA By PCR POSITIVE (Negative); Probe Check PASS
[2020-09-18] MEDS: Oxytocin 30 units/NS 500 ml 30 UNITS/500 ML IV.SOLN 334 UNITS IV (04:16)
--- NOTE | 2020-09-18 04:32 | PCM.DC ---
Discharge Instructions Diet Discharge Diet: No restrictions Activity Discharge Activity: Return to Normal Activity, May Not Drive (while taking narcotic pain medications.) and May Shower May resume sexual activity in: 4-6 weeks Dressing / Incision Call your doctor if your incision/area has: Continuous Slow Oozing, Sudden Increased Bleeding, Increased Pain/ Swelling, Increased Redness and Foul Smelling Discharge Follow Up Care Please Follow Up With: Rachael Forrest MD When: Call [phone] to make an appointment with your doctor in 6 weeks. If you had elevated blood pressure or 4th degree laceration, you will need to be seen in 2 weeks. Test Results: Test results from this visit will be discussed in further detail at your follow-up appointment, if applicable. Discharge Plan Admission Admit Date/Time: 09/18/20 01:35 Attending Provider: Rachael Forrest Primary Care Provider: Mitchel Bustamatne Discharge Orders/Prescriptions Prescriptions: New ibuprofen [ibuprofen] 600 MG tablet 600 mg PO Q6H PRN PRN (Reason: Pain) Qty: 30 RF: 0 Continued multivitamin [Daily Multi-Vitamin] Tablet 1 tab PO DAILY RF: 0 Discontinued progesterone micronized 100 mg insert 1 insert VAGINAL BID RF: 0 rho(D) immune globulin [RhoGAM Ultra-Filtered PLUS] 1,500 unit (300 mcg) syringe 1,500 unit IM ONCE Qty: 1 RF: 0 YAI-kugcdhxylbaog-tlfsdax-caff Tablet 1 tab PO DAILY RF: 0 Referrals / Follow Up: Mitchel Bustamante MD [Primary Care Provider] - Disposition Discharge Orders: Discharge Patient (Routine); Ordered 09/18/20 Ordered By: Dr. Rachael Forrest
--- NOTE | 2020-09-18 05:25 | NURSING ---
Pt delivered in OR for [facility] and [facility] team to have space for resusitation due to 30.2 week delivery. Anesthesia aware pt here and , but not present in OR for delivery. Pt delivered naturally vaginal.
--- NOTE | 2020-09-18 06:30 | NURSING ---
Pt instructed on using the pump. Pt pumped for 20 minutes both sides. Assisted pt to put colostrum in tubes and reminded to take with her to [facility].
== END 2020-09-18 12:30 | disposition home or self-care (01) | DRG 807 ==
LOC: WPOUT 01:38 → WP 01:38
PROVIDERS: Admitting Provider Obstetrics & Gynecology; PCP Family Medicine; Visit Provider Obstetrics & Gynecology
DX: O60.14X0 Preterm labor third trimester with preterm delivery third trimester, not applicable or unspecified (principal); O34.219 Maternal care for unspecified type scar from previous cesarean delivery; Z20.822 Contact with and (suspected) exposure to COVID-19; Z3A.30 30 weeks gestation of pregnancy; Z37.0 Single live birth
CPT/HCPCS: 59025; 59050; 76815; 82731; 85025; 85461; 86850; 86900; 86901; 87426; 87653; 90384; 99218; J7120; A4216; G0378; J0290; J0702; J2790

== ENCOUNTER → 2020-11-01 | Outpatient (CLI) | payer SELFPAY ==
[2020-11-01 11:31] VITALS: BMI 32.6
[2020-11-05 21:26] LABS: HPV APTIMA, High Risk Negative (Negative)
== END | disposition home or self-care (01) ==
PROVIDERS: PCP Family Medicine; Referring Provider Obstetrics & Gynecology; Visit Provider Obstetrics & Gynecology
DX: Z12.4 Encounter for screening for malignant neoplasm of cervix (principal)
CPT/HCPCS: 87624; 88175; G0145

== ENCOUNTER → 2021-09-12 | Outpatient (CLI) | payer SELFPAY ==
--- NOTE | 2021-09-12 11:27 | US_ITS ---
STUDY: ULTRASOUND OF THE FEMALE PELVIS - COMPLETE REASON FOR EXAM: Female, 31 years old. Pain -- LEFT PELVIC PAIN -- HEAVY PERIODS LMP: 09/05/2021. TECHNIQUE: Transabdominal and Transvaginal TECHNICAL QUALITY: Adequate. COMPARISON: None. FINDINGS: The uterus is anteverted and is in a midline position. The uterus measures 8.9 cm x 6.3 cm x 5.1 cm. Normal uterine cervix. The endometrium is thickened and measures 12 mm in thickness, and is hyperechoic. There is no demonstrated endometrial mass. There is no demonstrated myometrial mass. I.U.D. - The patient does not have an I.U.D. The patient is status post right oophorectomy. The left ovary is visualized. The left ovary measures 4 cm x 4.6 cm x 3.1 cm. There is a 3 cm x 3.1 cm x 2.4 cm left ovarian cyst. There is no visualized left adnexal mass or complex lesion. There is normal arterial and normal venous vascularity. There is no fluid in the cul-de-sac. The pre void volume of the bladder was 572 ml. US/Pelvic (Non ) IMPRESSION: Status post right oophorectomy. 3 cm x 3.1 cm x 2.4 cm left ovarian cyst. The endometrium measures 12 mm in thickness. Electronically Signed: Panfilo Ruvalcaba MD at 13:13 EDT ,
--- NOTE | 2021-09-12 11:27 | US_ITS ---
STUDY: ULTRASOUND OF THE FEMALE PELVIS - COMPLETE REASON FOR EXAM: Female, 31 years old. Pain -- LEFT PELVIC PAIN -- HEAVY PERIODS LMP: 09/05/2021. TECHNIQUE: Transabdominal and Transvaginal TECHNICAL QUALITY: Adequate. COMPARISON: None. FINDINGS: The uterus is anteverted and is in a midline position. The uterus measures 8.9 cm x 6.3 cm x 5.1 cm. Normal uterine cervix. The endometrium is thickened and measures 12 mm in thickness, and is hyperechoic. There is no demonstrated endometrial mass. There is no demonstrated myometrial mass. I.U.D. - The patient does not have an I.U.D. The patient is status post right oophorectomy. The left ovary is visualized. The left ovary measures 4 cm x 4.6 cm x 3.1 cm. There is a 3 cm x 3.1 cm x 2.4 cm left ovarian cyst. There is no visualized left adnexal mass or complex lesion. There is normal arterial and normal venous vascularity. There is no fluid in the cul-de-sac. The pre void volume of the bladder was 572 ml. US/Transvaginal Non- IMPRESSION: Status post right oophorectomy. 3 cm x 3.1 cm x 2.4 cm left ovarian cyst. The endometrium measures 12 mm in thickness. Electronically Signed: Panfilo Ruvalcaba MD at 13:13 EDT ,
== END | disposition home or self-care (01) ==
LOC: US 11:26
PROVIDERS: PCP Family Medicine; Referring Provider Nurse Practitioner Women's Health; Visit Provider Nurse Practitioner Women's Health
DX: R10.2 Pelvic and perineal pain (principal)
CPT/HCPCS: 76830; 76856; 93976

== ENCOUNTER → 2021-12-24 | Outpatient (CLI) | payer SELFPAY ==
--- NOTE | 2021-12-24 11:08 | US_ITS ---
STUDY: ULTRASOUND OF THE FEMALE PELVIS - COMPLETE REASON FOR EXAM: Female, 31 years old. Pelvic pain left -- right oophorectomy LMP: 12/11/2021. TECHNIQUE: Transabdominal and Transvaginal TECHNICAL QUALITY: Adequate. COMPARISON: Comparison is made with prior study dated 09/12/2021. FINDINGS: The uterus is anteverted and is in a midline position. The uterus measures 10.3 cm x 6 cm x 4.2 cm. There is a Nabothian cyst of the cervix. The endometrium measures 7.9 mm in thickness, and is hyperechoic. There is no demonstrated endometrial mass. There is no demonstrated myometrial mass. I.U.D. - The patient does not have an I.U.D. The patient is status post right oophorectomy. The left ovary is visualized. The left ovary measures 5.5 cm x 4.3 cm x 3.3 cm. There is a 3.2 cm x 4 cm x 3.7 cm simple cyst in the left ovary. There is no visualized left adnexal mass or complex lesion. There is normal arterial and normal venous vascularity. There is no fluid in the cul-de-sac. The pre void volume of the bladder was 482 ml. US/Pelvic (Non ) IMPRESSION: Status post right oophorectomy. 3.2 cm x 4 cm x 3.7 cm cyst in the left ovary. Electronically Signed: Panfilo Ruvalcaba MD at 12:30 EDT ,
--- NOTE | 2021-12-24 11:08 | US_ITS ---
STUDY: ULTRASOUND OF THE FEMALE PELVIS - COMPLETE REASON FOR EXAM: Female, 31 years old. Pelvic pain left -- right oophorectomy LMP: 12/11/2021. TECHNIQUE: Transabdominal and Transvaginal TECHNICAL QUALITY: Adequate. COMPARISON: Comparison is made with prior study dated 09/12/2021. FINDINGS: The uterus is anteverted and is in a midline position. The uterus measures 10.3 cm x 6 cm x 4.2 cm. There is a Nabothian cyst of the cervix. The endometrium measures 7.9 mm in thickness, and is hyperechoic. There is no demonstrated endometrial mass. There is no demonstrated myometrial mass. I.U.D. - The patient does not have an I.U.D. The patient is status post right oophorectomy. The left ovary is visualized. The left ovary measures 5.5 cm x 4.3 cm x 3.3 cm. There is a 3.2 cm x 4 cm x 3.7 cm simple cyst in the left ovary. There is no visualized left adnexal mass or complex lesion. There is normal arterial and normal venous vascularity. There is no fluid in the cul-de-sac. The pre void volume of the bladder was 482 ml. US/Transvaginal Non- IMPRESSION: Status post right oophorectomy. 3.2 cm x 4 cm x 3.7 cm cyst in the left ovary. Electronically Signed: Panfilo Ruvalcaba MD at 12:30 EDT ,
== END | disposition home or self-care (01) ==
LOC: US 11:06
PROVIDERS: PCP Family Medicine; Referring Provider Nurse Practitioner Women's Health; Visit Provider Nurse Practitioner Women's Health
DX: R10.2 Pelvic and perineal pain (principal)
CPT/HCPCS: 76830; 76856

== ENCOUNTER → 2022-03-24 | Outpatient (CLI) | payer SELFPAY ==
--- NOTE | 2022-03-24 15:30 | US_ITS ---
EXAM: US pelvis. HISTORY: PELVIC PAIN. Right oophorectomy. COMPARISON: Pelvic ultrasound December 24, 2021. LIMITATIONS: None. FINDINGS: Endometrial thickness is normal measuring 5 mm. The right ovary has been removed. The 4 cm cyst in the left ovary present on the prior exam has resolved. A 1.5 x 1.8 cm cyst is in the left ovary. The cyst is largely composed of simple fluid with a possible thin septation. Several follicles are also identified within the left ovary. Flow is demonstrated to the left ovary. No free pelvic fluid. US/Pelvic (Non ) IMPRESSION: 1.5 x 1.8 cm left ovarian cyst. Flow to the left ovary. Electronically Signed: Bradly Beauchamp MD at 2:18 EST ,
== END | disposition home or self-care (01) ==
PROVIDERS: PCP Family Medicine; Referring Provider Obstetrics & Gynecology; Visit Provider Obstetrics & Gynecology
DX: R10.2 Pelvic and perineal pain (principal)
CPT/HCPCS: 76830; 76856; 93976

== ENCOUNTER → 2025-02-15 | Outpatient (CLI) | payer SELFPAY ==
[2025-02-15 12:19] LABS: Hematocrit 41.4 % (37-47); Hemoglobin 13.3 g/dL (12.0-15.0); Immature Granulocytes Count 0.010 X10^3/uL (0.0-0.0); Mean Corp Hgb Conc 32.1 g/dL (32-36); Mean Corpuscular Volume 92.0 fL (81-99); Mean Platelet Vol. 10.1 fl (6.2-12.0); NRBC Flagged by Analyzer 0 % (0-5); Platelet Count 366 K/mm3 (150-450); RBC Distribution Width CV 12.9 % (11.6-14.6); RBC Distribution Width SD 43.6 fl (35.1-43.9); Red Blood Count 4.50 M/mm3 (4.2-5.4); White Blood Count 5.1 K/mm3 (4.4-11.0)
[2025-02-15 13:36] LABS: AST(SGOT) 22 U/L (<=31); Alanine Aminotransfer ALT/SGPT 16 U/L (<=34); Albumin, Serum 4.5 g/dL (3.5-5.0); Alkaline Phosphatase 55 U/L (35-104); Anion Gap 9 (5-15); BUN 10 mg/dL (4-19); BUN/Creat Ratio 12.3 RATIO (10-20); Calcium,Total 9.5 mg/dL (7.6-11.0); Carbon Dioxide 26.4 mmol/L (21.0-32.0); Chloride 104 mmol/L (98-108); Globulin 2.8 g/dL (2.2-4.2); Glucose 89 mg/dL (70-99); Potassium 4.5 mmol/L (3.3-5.1); Vitamin D,25 Hydroxy 63.0 ng/mL (30-100)
[2025-02-19 14:08] LABS: VITAMIN B6 27.8 ug/L (3.4-65.2)
== END | disposition home or self-care (01) ==
PROVIDERS: Nurse Practitioner Family; PCP Family Medicine; Visit Provider Obstetrics & Gynecology
DX: R53.83 Other fatigue (principal)
CPT/HCPCS: 36415; 80053; 82306; 84207; 84439; 84443; 85025